=== PATIENT | male | born 1965 | race Two or more races ===

== ENCOUNTER → 2021-04-28 | Outpatient (CLI) | payer SELFPAY ==
--- NOTE | 2021-04-28 16:36 | RAD ---
Site ID: [id number] EXAMINATION: XR KNEE_AP BILAT STANDING, XR KNEE_RT 1-2 VIEWS. HISTORY: 55 years Male Reason: KNEE PAIN COMPARISON: April 28, 2021. FINDINGS: No fracture, dislocation or radiopaque foreign body. There are from marginal osteophytes seen in t he 3 compartments. There is a minimal joint space narrowing in the medial compartment. The standing v iew demonstrate good alignment on both sides with the slightly more degenerative changes seen on the right side. There is a 1 cm from well-corticated ossification seen projecting anteriorly at the right knee joint could represent a loose body. IMPRESSION: Degenerative changes seen more in the right knee with the a 1 cm loose bodies suggested in the anteri or aspect of the right knee joint. Electronically signed by: Trace Swartz MD (04/28/2021 4:33 PM) [id number]
== END ==
LOC: RAD 10:19
PROVIDERS: ATTEND Physician Assistant
DX: M17.11 Unilateral primary osteoarthritis, right knee (principal); M25.761 Osteophyte, right knee
CPT/HCPCS: 73560; 73565